=== PATIENT | male | born 1940 | race Caucasian/White ===

== ENCOUNTER 2019-04-02 10:07 | Observation (INO) | payer MEDICARE ==
[~2019-04-02] VITALS: Ht 165.1 cm; Wt 65.0 kg
[2019-04-02 10:13] VITALS: Ht 165.1 cm; Wt 65.0 kg
[2019-04-02] MEDS ORDERED: SOD CHLORIDE 0.9% 500 ML IV STA (10:40)
[2019-04-02] MEDS ORDERED: KETOROLAC 15 MG INJ IV STA (10:40)
--- NOTE | 2019-04-02 10:43 | ERD ---
ER Documentation Chief Complaint Chief Complaint CP WHILE IN GYM HPI This is a 78-year-old man complaining of left lateral costal margin pain, sharp, sudden beginning while at the gym. Patient states the pain precipitated by exercise and deep breathing and states he has had this similar but less intense and less painful episodes about 4-5 times in the past. The pain lasted for about half an hour and then improved, he denies dizziness or diaphoresis, no loss of consciousness, no shortness of breath, no headache or blurry vision. Patient denies blood per rectum or melena. ROS All systems reviewed and are negative except as per history of present illness. PMhx/Soc Hypertension, bradycardia History of Surgery: Yes (CHOLECYSTECTOMY,HERNIA REPAIR) Anesthesia Reaction: No Hx Neurological Disorder: Yes (TIA) Hx Respiratory Disorders: No Hx Cardiac Disorders: Yes (AFIB) Hx Psychiatric Problems: No Hx Miscellaneous Medical Probl: No Hx Alcohol Use: No Hx Substance Use: No Hx Tobacco Use: No Smoking Status: Never smoker FmHx Family History: No diabetes Physical Exam Vitals Vital Signs Date Temp Pulse Resp B/P (MAP) Pulse Ox O2 O2 Flow FiO2 Time Delivery Rate 04/02/19 98.1 59 18 120/71 99 10:13 (87) Physical Exam GENERAL: Well-developed, well-nourished, well-hydrated, in no apparent distress, looks nontoxic in appearance HEENT: Moist mucous membranes, pink conjunctiva, no cervical spine tenderness or step-off deformities, no goiter, no jaundice or icterus, extraocular movements intact without pain. No submandibular induration, and no pharyngeal erythema NEURO: Alert and oriented 3, cranial nerves II through XII intact bilaterally, pupils equal round reactive to light, no focal deficits or facial asymmetry, sensation intact distally Strength 5/5 in upper and lower extremities bilaterally CARDIAC: Regular rate and rhythm, no murmurs rubs or gallops LUNGS: Clear bilaterally no wheezing crackles or stridor ABDOMEN: Soft nontender, no guarding, no rigidity, no rebound, no psoas sign no obturator sign. Normoactive bowel sounds SKIN: Warm and dry to touch, no abrasions, contusions, or hematomas, no lacerations, no ecchymosis, no target lesions, and without ulcers EXTREMITIES: No clubbing cyanosis or edema, calves are bilaterally symmetrical, no Homans sign, no popliteal cord sign. Distal pulses equal and bilateral PSYCH: Normal affect without agitation or irritability Result Diagram: 04/02/19 1037 04/02/19 1037 Results 24 hrs Laboratory Tests Test 04/02/19 10:37 White Blood Count 4.3 10^3/ul Red Blood Count 4.55 10^6/ul Hemoglobin 13.0 g/dl Hematocrit 39.4 % Mean Corpuscular Volume 86.6 fl Mean Corpuscular Hemoglobin 28.6 pg Mean Corpuscular Hemoglobin Concent 33.0 g/dl Red Cell Distribution Width 15.0 % Platelet Count 174 10^3/UL Mean Platelet Volume 10.3 fl Immature Granulocytes % 0.200 % Neutrophils % 46.4 % Lymphocytes % 38.9 % Monocytes % 12.2 % Eosinophils % 1.6 % Basophils % 0.7 % Nucleated Red Blood Cells % 0.0 /100WBC Immature Granulocytes # 0.010 10^3/ul Neutrophils # 2.0 10^3/ul Lymphocytes # 1.7 10^3/ul Monocytes # 0.5 10^3/ul Eosinophils # 0.1 10^3/ul Basophils # 0.0 10^3/ul Nucleated Red Blood Cells # 0.0 10^3/ul Sodium Level 142 mmol/L Potassium Level 4.1 mmol/L Chloride Level 109 mmol/L Carbon Dioxide Level 21 mmol/L Anion Gap 12 Blood Urea Nitrogen 16 mg/dl Creatinine 1.04 mg/dl Est Glomerular Filtrat Rate mL/min mL/min Glucose Level 96 mg/dl Calcium Level 9.1 mg/dl Total Bilirubin 1.1 mg/dl Direct Bilirubin 0.00 mg/dl Indirect Bilirubin 1.1 mg/dl Aspartate Amino Transf (AST/SGOT) 32 IU/L Alanine Aminotransferase (ALT/SGPT) 26 IU/L Alkaline Phosphatase 75 IU/L Troponin I < 0.012 ng/ml Total Protein 7.3 g/dl Albumin 4.1 g/dl Globulin 3.20 g/dl Albumin/Globulin Ratio 1.28 Lipase 120 U/L Current Medications Medications Dose Sig/Braden Start Time Status Last (Trade) Ordered Route PRN Stop Time Admin Dose Reason Admin Sodium 500 ml @ Q1H STAT 04/02/19 DC 04/02/19 Chloride 500 mls/hr IV 10:40 11:16 04/02/19 11:39 Ketorolac 15 mg ONCE STAT 04/02/19 DC 04/02/19 Tromethamine IV 10:40 11:18 (Toradol) 04/02/19 10:41 Enalaprilat 1.25 mg ONCE ONCE 04/02/19 DC (Vasotec Iv) IV 11:00 04/02/19 11:01 Procedures/MDM IV line was established patient was placed on gambling monitor rhythm strip revealed a sinus rhythm at about 70 bpm with upright P and T waves. Patient was afebrile Chest X-ray 1V Interpreted by me: Soft Tissue: No acute abnormalities Bones: No acute abnormalities Mediastinum/Cardiac Silhouette/Lungs: No acute abnormalities EKG performed, read by me revealed a normal sinus rhythm at 66 bpm, normal axis, narrow QRS complex, no concerning ST elevations or depressions noted I administered 500 cc normal saline IV, Toradol 15 mg IV. Patient's hypertension resolved spontaneously. CBC and electrolytes were normal, liver function tests normal, troponin negative I administered aspirin 324 mg p.o. for cardioprotective measures. Patient is concerned about today's chest pain and given his age and risk factors he will be admitted to telemetry for continued medical management and repeat troponin testing. Departure Diagnosis: Primary Impression: Chest pain Chest pain type: chest pain on breathing Qualified Codes: R07.1 - Chest pain on breathing Additional Impression: Bradycardia Condition: STEPHON Rome MD April 02, 2019 10:43
[2019-04-02] MEDS ORDERED: ENALAPRILAT 1.25 MG INJ IV ONE (11:00)
[2019-04-02] MEDS ORDERED: ASPIRIN 81 MG TAB PO ONE (12:00)
[2019-04-02] MEDS ORDERED: ATOR40TA68 PO (12:20)
[2019-04-02] MEDS ORDERED: CLOP75TA19 PO (12:20)
[2019-04-02] MEDS ORDERED: BUPR150T18 PO (12:20)
[2019-04-02] MEDS ORDERED: METF500T24 PO (12:21)
[2019-04-02] MEDS ORDERED: VIA100 PO (12:21)
[2019-04-02] MEDS ORDERED: DONE10TA7 PO (12:22)
[2019-04-02] MEDS ORDERED: ALFU10TA2 PO (12:22)
[2019-04-02] MEDS ORDERED: DEXL60CA2 PO (12:22)
--- NOTE | 2019-04-02 14:33 | HP ---
Date/Time of Note Date/Time of Note DATE: 04/02/19 TIME: 14:29 Assessment/Plan VTE Prophylaxis SCD applied (from Nsg): Yes Pharmacological prophylaxis: heparin Lines/Catheters IV Catheter Type (from Nrsg): Saline Lock Assessment/Plan Hospital Course This is a 78-year-old male with a history of TIA, diabetes, hypertension who pre sents with atypical chest pain syndrome -History and exam this is almost certainly musculoskeletal pain. Troponin is negative. EKG is not consistent with acute ischemia. We will check 1 more troponin to definitively exclude ACS and if negative the patient can be discharged -There are no respiratory symptoms to suggest pulmonary pathology. No fracture etc. on chest x-ray Result Diagram: 04/02/19 1037 04/02/19 1037 Results 24hrs Laboratory Tests Test 04/02/19 10:37 White Blood Count 4.3 L Red Blood Count 4.55 L Hemoglobin 13.0 L Hematocrit 39.4 L Mean Corpuscular Volume 86.6 Mean Corpuscular Hemoglobin 28.6 L Mean Corpuscular Hemoglobin Concent 33.0 Red Cell Distribution Width 15.0 H Platelet Count 174 Mean Platelet Volume 10.3 Immature Granulocytes % 0.200 Neutrophils % 46.4 Lymphocytes % 38.9 Monocytes % 12.2 H Eosinophils % 1.6 Basophils % 0.7 Nucleated Red Blood Cells % 0.0 Immature Granulocytes # 0.010 Neutrophils # 2.0 Lymphocytes # 1.7 Monocytes # 0.5 Eosinophils # 0.1 Basophils # 0.0 Nucleated Red Blood Cells # 0.0 Sodium Level 142 Potassium Level 4.1 Chloride Level 109 Carbon Dioxide Level 21 Anion Gap 12 Blood Urea Nitrogen 16 Creatinine 1.04 Est Glomerular Filtrat Rate mL/min Glucose Level 96 Calcium Level 9.1 Total Bilirubin 1.1 Direct Bilirubin 0.00 Indirect Bilirubin 1.1 Aspartate Amino Transf (AST/SGOT) 32 Alanine Aminotransferase (ALT/SGPT) 26 Alkaline Phosphatase 75 Troponin I < 0.012 Total Protein 7.3 Albumin 4.1 Globulin 3.20 Albumin/Globulin Ratio 1.28 Lipase 120 HPI/ROS Admit Date/Time Admit Date/Time Hx of Present Illness 78-year-old male with a history of mild hypertension mild diabetes and previous history of TIA who presents with a chest pain syndrome Patient in his usual state of health until today. He exercises regularly for 2 hours daily. He was at the gym and lifting weights when he felt onset of pain very localized to his left lateral chest wall. Pain was intolerable. Came to the ED where he was given Toradol injection and now pain is resolved. He is worried that this is something having to do with his heart. He is followed by c ardiologist though has never had any known heart disease it seems. Dr. Rivas. I spoke to this doctor by phone he says the patient had a normal stress test a few days ago and he we will see him in the office tomorrow. The patient does not seem to have ever had angina. Of note he is bradycardic resting heart rate is in the 40s. 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 He has never had issues with syncope or presyncope ROS Constitutional: no complaints, improved Eyes: no complaints ENT: no complaints Respiratory: no complaints Cardiovascular: no complaints Gastrointestinal: no complaints Genitourinary: no complaints Musculoskeletal: no complaints Skin: no complaints Neurologic: no complaints Endocrine: no complaints Lymphatic: no complaints Psychological: no complaints, nl mood/affect Immunologic: no complaints PMH/Family/Social Past Medical History Medical History: no pertinent history Coded Allergies: No Known Allergy (Unverified , 04/02/19) Past Surgical History Past Surgical Hx: no surgical history Family History Significant Family History: no pertinent family hx Social History Alcohol Use: none Smoking Status: Never smoker Drug Use: none Exam/Review of Systems Vital Signs Vitals Vital Signs Date Temp Pulse Resp B/P (MAP) Pulse Ox O2 O2 Flow FiO2 Time Delivery Rate 04/02/19 41 18 120/81 100 Nasal 14:00 (94) Cannula 04/02/19 98.1 10:13 Exam Constitutional: alert, oriented, well developed Psych: no complaints, nl mood/affect Head: normocephalic, atraumatic Eyes: nl conjunctiva, EOMI, nl lids, nl sclera, PERRL ENMT: nl external ears & nose, nl lips & teeth, nl nasal mucosa & septum Neck: supple, non-tender Respiratory: clear to auscultation, normal air movement Cardiovascular: regular rate and rhythm, nl pulses Gastrointestinal: soft, nl liver, spleen, non-tender Musculoskeletal: nl extremities to inspection Extremities: normal pulses 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
[2019-04-02 17:26] VITALS: BP 126/61; PULSE 44; RESP 18
[2019-04-02 17:31] VITALS: PULSE 39
--- NOTE | 2019-04-02 17:31 | PDOCDIS ---
Discharge Instructions DIAGNOSIS Discharge Diagnosis Chest pain CONDITION [id number] Patient Condition: [id number] Stable FOLLOW UP/APPOINTMENTS Follow-up Plan See your doctor in clinic tomorrow Take ibuprofen as needed for pain GAB JOSEPH MD April 02, 2019 17:31
--- NOTE | 2019-04-03 18:23 | DS ---
Date/Time of Note Date/Time of Note DATE: 04/03/19 TIME: 18:22 Discharge Summary Admission/Discharge Info Admit Date/Time April 02, 2019 at 11:56 Discharge Date/Time April 02, 2019 at 19:10 Discharge Diagnosis Chest pain Patient Condition: Stable Hx of Present Illness 78-year-old male with a history of mild hypertension mild diabetes and previous history of TIA who presents with a chest pain syndrome Patient in his usual state of health until today. He exercises regularly for 2 hours daily. He was at the gym and lifting weights when he felt onset of pain very localized to his left lateral chest wall. Pain was intolerable. Came to the ED where he was given Toradol injection and now pain is resolved. He is worried that this is something having to do with his heart. He is followed by bradder though has never had any known heart disease it seems. Dr. Rivas. I spoke to this doctor by phone he says the patient had a normal stress test a few days ago and he we will see him in the office tomorrow. The patient does not seem to have ever had angina. Of note he is bradycardic resting heart rate is in the 40s. 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 He has never had issues with syncope or presyncope Hospital Course This is a 78-year-old male with a history of TIA, diabetes, hypertension who presents with atypical chest pain syndrome History and exam this is almost certainly musculoskeletal pain. Troponins were negative. EKG was not consistent with acute ischemia. -There were no respiratory symptoms to suggest pulmonary pathology. No fracture etc. on chest x-ray I spoke with his PMD/bradder who agreed to see him in clinic today. Patient discharged to self half-way Meds Reported Medications Dexlansoprazole (Dexilant) 60 Mg Cap., 60 MG PO DAILY, #30 CAP 04/02/19 Alfuzosin Hcl* (Alfuzosin Hcl*) 10 Mg Tab.er.24h, 10 MG PO DAILY, #30 TAB.SA 04/02/19 Sildenafil Citrate* (Viagra*) 100 Mg Tablet, 100 MG PO DAILY PRN for NEEDED, TAB 04/02/19 Metformin Hcl* (Metformin Hcl*) 500 Mg Tablet, 500 MG PO WITH BREAKFAST, #30 TAB 04/02/19 Bupropion Hcl* (Bupropion Hcl SR*) 150 Mg Tablet.er, 150 MG PO DAILY, TAB.SA 04/02/19 Clopidogrel Bisulfate* (Clopidogrel Bisulfate*) 75 Mg Tablet, 75 MG PO DAILY, #30 TAB 04/02/19 Atorvastatin* (Atorvastatin*) 40 Mg Tablet, 40 MG PO QHS, #30 TAB 04/02/19 Discontinued Reported Medications Donepezil* (Aricept*) 10 Mg Tablet, 10 MG PO DAILY, TAB 04/02/19 Follow-up Plan See your doctor in clinic tomorrow Take ibuprofen as needed for pain Primary Care Provider Not On Staff Doctor GAB JOSEPH MD April 03, 2019 18:23
--- NOTE | 2019-04-04 14:45 | RADRPT ---
Vent Rate: 66 bpm RR Interval: 0 msec DE Interval: 192 msec QRS Duration: 74 msec QT Interval: 438 msec QTC Interval: 459 msec P-R-T [place]: 63 - 36 - 42 degrees Sinus rhythm with fusion complexes Nonspecific ST and T wave abnormality Abnormal ECG Electronically Signed By: [facility]
== END 2019-04-02 19:10 | disposition home or self-care (01) ==
LOC: E/R 10:07 → TEL 11:56 → SUATTDRO 13:52
PROVIDERS: ADMIT Internal Medicine; ATTEND Internal Medicine
DX: R07.9 Chest pain, unspecified (principal); I48.91 Unspecified atrial fibrillation; E11.9 Type 2 diabetes mellitus without complications; I10 Essential (primary) hypertension; Z86.73 Personal history of transient ischemic attack (TIA), and cerebral infarction without residual deficits
CPT/HCPCS: 36415; 71045; 80053; 83690; 84484; 85025; 93005; 96374; 99285; G0378; J1885; J7040